=== PATIENT | female | born 1945 | race Caucasian/White ===

== ENCOUNTER 2018-03-20 12:18 | Inpatient (IN) | payer BC, OTHER ==
[2018-03-20] MEDS ORDERED: LABETALOL HCL 5 MG/ML 20 ML MDV ONE (12:30)
[2018-03-20] MEDS ORDERED: LABETALOL HCL 5 MG/ML 20 ML MDV IVP ONE ×3 (12:39→14:51)
[2018-03-20 12:58] LABS: PLATELET COUNT 309 10^3/uL (150-400)
[2018-03-20 13:06] LABS: INR 1.01 (0.83-1.16); PROTIME(PATIENT) 13.5 SEC (12.0-15.0)
[2018-03-20] MEDS ORDERED: IOPAMIDOL (ISOVUE 370) 100 ML BTL IV ONE (13:25)
--- NOTE | 2018-03-20 14:48 | EDPHY ---
H & P Time Seen by Provider: 03/20/18 12:22 HPI/ROS: HPI High blood pressure, left shoulder neck pain. 72-year-old female from the office of plate cutter Dr. Saji Steiner. This patient complains of a left-sided neck pain and shoulder pain, atraumatic, that has been bothering her for the last 2-3 days intermittently. She reports the pain radiates into her back. I received a call from Dr. Steiner who is concerned about an acute coronary syndrome versus a dissection process. She was extremely hypertensive with systolic blood pressures in the 230s and diastolic blood pressure in the 120s. She does not have any shortness of breath. She does have a history of hypertension and currently takes Benicar and Cardura. She has been on this medication for about 2 years now. ROS: Constitutional: No fever, no chills. No weakness. Eyes: No discharge. No changes in vision. ENT: No sore throat. No nasal congestion or rhinorrhea. Respiratory: No cough. No shortness of breath. Cardiac: No chest pain, no palpitations. Gastrointestinal: No abdominal pain, no vomiting, no diarrhea. Genitourinary: No hematuria. No dysuria or increased frequency with urination. Musculoskeletal: No back pain. As above. No myalgias or arthralgias. Skin: No rashes. Neurological: No headache. No focal weakness or altered sensation. Past medical history: Hypertension, depression, allergies, arthritis, osteopenia, irritable bowel syndrome. Social history: Nonsmoker. No alcohol. Here with family. She is from [place]. Physical Exam: General Appearance: Alert, no distress. This patient is responding to questions appropriately and in full sentences. This patient appears well- hydrated and well-nourished. Eyes: Pupils equal and round no pallor or injection. No lid edema, erythema or injection. Respiratory: There are no retractions, lungs are clear to auscultation with good air movement bilaterally. Cardiovascular: Regular rate and rhythm. No murmur appreciated. Gastrointestinal: Abdomen is soft and nontender, no masses, bowel sounds normal. No focal tenderness at McBurney's point. No Shah sign. Neurological: Motor sensory function is grossly intact. Cranial nerves are normal. Gait is normal. Skin: Warm and dry, no rashes. Musculoskeletal: Neck is supple and nontender. Extremities are symmetrical. All joints range without pain or impingement. Psychiatric: No agitation. No depression. Database: EKG: EKG time is 12:30 p.m.; EKG shows a narrow complex normal sinus rhythm with a ventricular rate of 59. The RI, QRS, QT intervals are within normal limits. There are no ST-T wave changes indicative of ischemic or injury pattern. No evidence of right heart strain. Interpreted by me. Imaging: Echocardiogram: Preliminary read normal ejection fraction, no dissection. CT angiogram of chest: No pulmonary embolism, no evidence of dissection, results were discussed with staff radiologist Dr. Glynn Curiel. Procedures: Emergency department course: Triage vital signs reviewed. Initial blood pressure 242/111, vital signs otherwise normal. Patient afebrile. IV established, patient placed on a technical lead, patient given 20 mg of IV labetalol. Blood pressure came down to 163/82 after this medication. Patient on presentation to the emergency department has denied any left shoulder, neck pain or chest pain. 2:50 p.m., patient re-evaluated, resting comfortably at this time. Denies any chest pain, neck pain or shoulder pain. Results of her emergency department workup discussed with her and family. Blood pressure currently 179/103. The patient will be given IV labetalol as needed for blood pressures greater than 190 systolic. I discussed admission for observation overnight and and establishment of a better management plan for her hypertension. She endorses. She will also be seen by her plate cutter Dr. Saji Steiner. 2:55 p.m., spoke with on-call hospitalist, , case discussed with her in detail. She accepts this patient for admission to telemetry observation. The patient's remaining emergency department course under my care has been uneventful. She was admitted in stable condition to telemetry observation. 3:10 p.m., spoke with plate cutter Dr. Saji Steiner. Patient's emergency department workup and course was discussed in detail with him. He will see this patient on admission to the floor. Differential Diagnosis: The differential diagnosis on this patient includes but is not limited to hypertensive emergency, acute coronary syndrome, aortic dissection. This represents a partial list of diagnoses considered. These considerations are based on history, physical exam, past history, reassessment and diagnostic testing. Smoking Status: Never smoked Constitutional: Initial Vital Signs Temperature (C) 36.9 C 03/20/18 12:27 Heart Rate 62 03/20/18 12:27 Respiratory Rate 16 03/20/18 12:27 Blood Pressure 242/111 H 03/20/18 12:27 O2 Sat (%) 99 03/20/18 12:27 O2 Delivery Mode Room Air Allergies/Adverse Reactions: codeine Allergy (Verified 03/20/18 12:24) gabapentin [From Neurontin] Allergy (Verified 03/20/18 12:24) gluten Allergy (Verified 03/20/18 12:24) lactose Allergy (Verified 03/20/18 12:24) prednisone Allergy (Verified 03/20/18 12:24) shellfish derived Allergy (Verified 03/20/18 12:24) tramadol [From Ultram] Allergy (Verified 03/20/18 12:24) Home Medications: Medication Instructions Recorded Albuterol [Proventil Inhaler HFA 1 - 2 puffs IH Q4H PRN 03/20/18 (*)] Aspirin EC [Aspirin EC 81 mg (*)] 81 mg PO DAILY 03/20/18 Azelastine HCl [Astepro] 2 sprays NS BID 03/20/18 Beclomethasone Qvar 80 [Qvar 80 2 inh IH BID 03/20/18 Redihaler (*)] Cetirizine [ZyrTEC 10 mg (*)] 10 mg PO DAILY PRN 03/20/18 Ciclesonide [OMNARIS] 1 spray EACHNARE DAILY PRN 03/20/18 DESVENLAFAXINE SUCCINATE [Pristiq] 50 mg PO DAILY 03/20/18 Doxazosin Mesylate [Cardura] 2 mg PO HS 03/20/18 Estradiol [VAGIFEM] 10 mcg VG TUFR 03/20/18 Fenofibrate,Micronized 200 mg PO DAILY 03/20/18 [Fenofibrate] Herbals/Supplements -Info Only 1 ea PO DAILY 03/20/18 Multivitamins [Multivitamin (*)] 1 each PO DAILY 03/20/18 Olmesartan Medoxomil [Benicar 20 20 mg PO HS 03/20/18 mg (*)] Sarver-3 Fatty Acids [Fish Oil 1000 1,000 mg PO HS 03/20/18 mg (*)] Polyethylene Glycol 3350 [Miralax 17 gm PO HS PRN 03/20/18 17 gm (*)] buPROPion [Wellbutrin 75mg (*)] 75 mg PO DAILY 03/20/18 traZODone [traZODONE 50MG (*)] 50 mg PO HS 03/20/18 Medical Decision Making - Data Points Laboratory Results: Laboratory Results 03/20/18 12:40 03/20/18 12:40 Medications Given: Acetaminophen (Tylenol) 650 mg PO Q4HRS PRN PRN Reason: Pain, Mild/Fever, Can Take PO Stop: 09/16/18 15:47 Last Admin: 03/21/18 05:45 Dose: 650 mg Aspirin Buffered (Aspirin Ec) 81 mg PO DAILY [facility] Stop: 09/17/18 08:59 Last Admin: 03/21/18 08:19 Dose: 81 mg Azelastine HCl (Astelin) 2 sprays EACHNARE BID [facility] Stop: 09/16/18 20:59 Last Admin: 03/20/18 21:54 Dose: Not Given Beclomethasone Dipropionate (Qvar Redihaler) 2 inh IH BID [facility] Stop: 09/16/18 20:59 Last Admin: 03/20/18 21:17 Dose: Not Given Bupropion HCl (Wellbutrin) 75 mg PO DAILY [facility] Stop: 09/17/18 08:59 Last Admin: 03/21/18 08:20 Dose: 75 mg Doxazosin Mesylate (Cardura) 2 mg PO HS [facility] Stop: 09/16/18 20:59 Last Admin: 03/20/18 20:08 Dose: 2 mg Fenofibrate (Tricor) 145 mg PO DAILY [facility] Stop: 09/17/18 08:59 Last Admin: 03/21/18 08:19 Dose: 145 mg Hydralazine HCl (Apresoline) 10 mg IVP Q6HRS PRN PRN Reason: SBP>170 Stop: 09/16/18 17:11 Last Admin: 03/20/18 17:45 Dose: 10 mg Multivitamins (Tab-A-James) 1 each PO DAILY [facility] Stop: 09/17/18 08:59 Last Admin: 03/21/18 08:20 Dose: 1 each [id number] Ethyl Esters (Fish Oil) 1,000 mg PO HS [facility] Stop: 09/16/18 20:59 Last Admin: 03/20/18 20:06 Dose: 1,000 mg Trazodone HCl (Trazodone) 50 mg PO HS [facility] Stop: 09/16/18 20:59 Last Admin: 03/20/18 21:38 Dose: 50 mg Discontinued Medications Labetalol HCl (Trandate Injection) 20 mg IVP EDNOW ONE Stop: 03/20/18 12:40 Last Admin: 03/20/18 12:43 Dose: 20 mg Labetalol HCl (Trandate Injection) 20 mg IVP EDNOW ONE Stop: 03/20/18 12:57 Last Admin: 03/20/18 13:17 Dose: Not Given Labetalol HCl (Trandate Injection) 10 mg IVP EDNOW ONE Stop: 03/20/18 14:52 Last Admin: 03/20/18 14:53 Dose: 10 mg Losartan Potassium (Cozaar) 25 mg PO DAILY [facility] Stop: 09/16/18 17:14 Last Admin: 03/21/18 08:20 Dose: 25 mg Point of Care Test Results: Chemistry 03/20/18 03/20/18 13:00 12:48 POC Sodium 142 mEq/L mEq/L (135-145) POC Potassium 3.4 mEq/L mEq/L (3.3-5.0) POC Chloride 109 mEq/L mEq/L (97-110) POC BUN 21 mg/dL mg/dL (7-23) POC Creatinine 0.7 mg/dL mg/dL (0.6-1.0) POC Glucose 85 mg/dL mg/dL (70-100) POC Troponin I 0.01 ng/mL ng/mL (0.00-0.08) ISTAT H&H 03/20/18 13:00 POC Hgb 12.2 gm/dL L gm/dL (12.6-16.3) POC Hct 36 % L % (38-47) Departure - Departure Disposition: [facility] Acute Clinical Impression: Uncontrolled hypertension, Left shoulder pain
--- NOTE | 2018-03-20 15:28 | CPEKG ---
Test Reason : OPEN Blood Pressure : / mmHG Vent. Rate : 059 BPM Atrial Rate : 059 BPM P-R Int : 156 ms QRS Dur : 090 ms QT Int : 478 ms P-R-T Axes : 052 045 023 degrees QTc Int : 474 ms Sinus rhythm Abnormal inferior Q waves Borderline ST depression, anterolateral leads Confirmed by Evonne Marcos ([id number]) on 03/20/2018 3:28:13 PM Referred By: Confirmed By:Evonne Marcos
[2018-03-20] MEDS ORDERED: PROMETHAZINE HCL 25 MG/ML INJ IVP PRN (15:48)
[2018-03-20] MEDS ORDERED: ONDANSETRON 4 MG/2 ML VIAL IVP PRN (15:48)
[2018-03-20] MEDS ORDERED: ONDANSETRON DISINTEGRATING 4 MG TAB PO PRN (15:48)
[2018-03-20] MEDS ORDERED: oxyCODONE IR 5 MG TAB PO PRN (15:48)
[2018-03-20] MEDS ORDERED: HYDROCODONE/APAP 5/325 TAB PO PRN (15:48)
--- NOTE | 2018-03-20 16:20 | ECHO ---
[email or web address] [address] [address] Main: [phone] Fax: Transthoracic Echocardiogram Name: ASUNCION COLEMAN MR#: [id number] Study Date: 03/20/2018 Study Time: 01:12 PM Date of : 1945 Age: 72 year(s) Height: 160 cm (63 in.) Weight: 48.99 kg (108 lb.) BSA: 1.49 m2 Gender: Female Examination: Echo Indication: R/O dissection/eval AI Image Quality: Contrast: Requested by: Evonne Suarze BP: 168 mmHg/111 mmHg Heart Rate: Rhythm: Indication: R/O dissection/eval AI Procedure Staff Finisher Denture: Preethi Hager RDCS Reading Physician: Saji Ledezma MD Requesting Provider: Measurements: Chambers Valvular Assessment AV/MV Valvular Assessment TV/PV Normal Normal Normal Name Value Range Name Value Range Name Value Range Ao Domonique (MM): 3.1 cm (2.2 cm-3.7 AV Vmax: 1.74 m/s (1 m/s-1.7 TR Vmax: 2.35 mm/s ( - ) cm) m/s) TR PGmax: 22 mmHg ( - ) IVSd (2D): 0.9 cm (0.6 cm-1.1 AV maxP mmHg ( - ) syst. PAP: 27 mmHg ( - ) cm) AV meanP mmHg ( - ) LVDd (2D): 4.6 cm (3.9 cm-5.3 AR (PHT): 537 ms ( - ) cm) MV E Vmax: 0.89 m/s ( - ) LVDs (2D): 2.8 cm (2.1 cm-4 MV A Vmax: 0.87 m/s ( - ) cm) MV E/A: 1.02 ( - ) LVPWd (2D): 0.7 cm ( - ) LVEF (MOD4): 70 % (>=55 %) EF Range: 65-70 % Continued Measurements: Chambers Valvular Assessment AV/MV Valvular Assessment TV/PV Name Value Name Value Name Value LADs: 3.8 cm MV E/E' Septal: 16.70 CVP (est.): 5 mmHg LADs Lon.6 cm MV E/E' Lateral: 16.70 LA Area: 20.2 cm2 AR Vmax: 4.93 cm/s Additional Vessels Name Value Ao Ascendin.0 cm Patient: ASUNCION COLEMAN Study Date: 03/20/2018 Page 1 of 2 01:12 PM Findings: Left Ventricle: Normal size left ventricle. Mild concentric LV hypertrophy. The ejection fraction is estimated to be 65-70 %. Normal diastolic LV function. Question base inferior hypo/akinesis. All remaining segments have normal motion.. Right Ventricle: Normal size right ventricle. Left Atrium: The left atrium is normal in size. Right Atrium: The right atrium is normal in size. Mitral Valve: Mild mitral annular calcification. Mild mitral valve regurgitation is present. Aortic Valve: Mild to moderate aortic valve regurgitation. Tricuspid Valve: The tricuspid valve is normal in appearance and function. Mild tricuspid regurgitation is present. The pulmonary artery pressure is normal. Pulmonic Valve: Pulmonary valve not well visualized. Aorta: Borderline dilated ascending aorta.. The aorta is normal. Pericardium: No pericardial effusion. There is pericardial fat. (No Signature Object) Patient: ASUNCION COLEMAN Study Date: 03/20/2018 Page 2 of 2 01:12 PM [id number]
[2018-03-20] MEDS ORDERED: CICLESONIDE EACHNARE PRN (16:34)
[2018-03-20] MEDS ORDERED: POLYETHYLENE GLYCOL 3350 17 GM PKT PO PRN (16:34)
[2018-03-20] MEDS ORDERED: CETIRIZINE 10 MG TAB PO PRN (16:34)
[2018-03-20] MEDS ORDERED: ALBUTEROL 60 PUFFS/8 GM MDI IH PRN (16:34)
[2018-03-20] MEDS: hydrALAZINE 20 MG/ML VIAL IVP PRN (17:45)
[2018-03-20] MEDS: LOSARTAN POTASSIUM 25 MG TAB PO SCH (17:45)
--- NOTE | 2018-03-20 17:55 | PDCARPN ---
Cardiology Progress Note Chief Complaint: Patient reports mild headache. Assessment/Plan: Assessment: Please see Dr. Steiner office note dated 03/20/2018, to be used as official cardiology consultation. I have placed a paper copy in patient's physical chart. 72-year-old female from [facility] visiting her brother here in [place]. Seen at our office today for complain of dizziness, near syncope, poorly controlled hypertension. Significant history of TIA, hypertension, depression, asthma, arthritis, hyperlipidemia, irritable bowel syndrome, and Graves disease in remission. Noted with significant elevated blood pressures in our office at 218/118 on the left and 226/116 on the l right. Patient reporting significant elevated blood pressures over the last few days, despite restarting her Benicar for last few weeks. Reporting in our office of complaint of left neck shoulder and upper scapular area discomfort. Denying having any chest pain, pressure, shortness of breath, or dyspnea on exertion. Direct admit to the ED. Normal electrolyte renal function. Negative troponin. Patient with significant cardiac risk factors that include age, hypertension, hyperlipidemia, and family history of CAD. Studies: 03/20/2018 CTA of chest negative for PE or aortic dissection. 03/20/2018 ECHO normal LV size with mild concentric LVH, EF 65-70% with normal diastolic function, questionable base inferior hypokinesis. Mild annular calcification, mild MR, [id number] AI, mild TR, normal pulmonary pressures. Mildly dilated ascending aorta at 4.0 cm. 03/20/2018, electrocardiogram: Sinus bradycardia, mild Q-waves in inferior leads , biphasic T-waves in V1 Plan: 1. Hypertension emergency: Mild improvement of BP with IV labetalol, unfortunately noted to be bradycardic with heart rates into the 50. Patient states she has not taken her Benicar today. Patient also request not being placed on Benicar, due to feeling that she has yo-yo"blood pressures. Will place her on losartan at 25 mg p.o. Q.day, 1st dose now. Will also order p.r.n. Hydralazine, 10 mg q.6 hours IV systolic blood pressure greater than 170. Will not attempt to drop blood pressure too quickly. Repeat basic metabolic panel in a.m.. 2. Left shoulder and scapula pain: Patient reporting going on for multiple days , CTA negative for PE, aortic dissection. Noted questionable wall motion abnormality on echocardiogram. Electrocardiogram showing no ST or T-wave abnormalities suggesting of acute ischemia. Concerning that this may be patient 's angina equivalent. Initial troponin negative. Will cycle troponins overnight. Will plan to make patient NPO after midnight. If noted elevation, then will plan for patient to undergo cardiac catheterization. If continue be negative, consider stress testing with imaging. Home aspirin dosage ordered. 3. Hyperlipidemia: Patient states history of hyperlipidemia, currently not on any statin therapy. Will get a fasting lipid panel in a.m.. 4. Palpitations: Patient reports history of palpitations, previous history of TIA, concerning of possible atrial arrhythmia. Continuous cardiac monitoring, re-evaluated in a.m., with consideration of LINQ loop recorder implantation. 03/20/18 17:53 Subjective: Patient denies of any chest pressure or pain. Reports no further left shoulder/ scapula/arm pain. Reports no shortness of breath. Reports no palpitations since hospital admission. Reviewed/Discussed With: other (Dr Steiner) Objective: Vital Signs (8 Hrs) Temp Pulse Resp BP Pulse Ox 03/20/18 16:00 193/103 H 03/20/18 15:49 36.8 C 54 L 16 215/110 H 95 Intake/Output (24 Hrs) 03/19/18 03/20/18 03/21/18 05:59 05:59 05:59 Intake Total 200 Balance 200 Intake: Oral (ml) 200 Other: Weight 48.534 kg Intake Quantity Yes Sufficient Number of Voids Toilet 1 Result Diagrams: 03/20/18 12:40 03/20/18 12:40 - Physical Exam Constitutional: WDWN, no apparent distress Ears, Nose, Mouth, Throat: moist mucous membranes Cardiovascular: regular rate and rhythm, no rubs, no gallops, systolic murmur (1 /6 LSB), pulses symmetric bilat, No jugular vein distention, No carotid bruit Peripheral Pulses: 1+: dorsalis-pedis (R), dorsalis-pedis (L), 2+: carotid (R), carotid (L) Respiratory: clear to auscultate bilat, no crackles, no wheezes Gastrointestinal: normoactive bowel sounds Skin: warm, no edema Neurologic: AAOx3 Psychiatric: cooperative, interactive, following commands ICD10 Worksheet Patient Problems: Problems Problem Status Onset Uncontrolled hypertension Acute Left shoulder pain Acute
[2018-03-20] MEDS ORDERED: niCARdipine/NACL 200 ML IV SCH (18:00)
--- NOTE | 2018-03-20 19:19 | PDGENHP ---
History and Physical - Chief Complaint elevated bp, neck pain - History of Present Illness 72 yo F with PMH of poorly controlled BP, asthma presenting from Dr. Steiner's office with concerns of significantly elevated BP as well as left shoulder and neck pain. Patient notes she has been having increased difficulties with her BP over the last several months. She was on norvasc which did not work, then transitioned to benicar which she also feels has not worked. She does note that she was started on 3.25mg of HCTZ and even on that very low dose she became quite hypotensive and felt as though she may pass out. She notes that for the last several days her BP has been quite elevated and she has had this associated neck and shoulder pain. That is not usual for her to have that kind of pain, massaging did not help and she did not feel as if anything helped it. She has not had chest pain, she has a slight headache currently but otherwise denies pain. She has not had n/v. She has no leg swelling, sob or palpitations. History Information - Allergies/Home Medication List Allergies/Adverse Reactions: codeine Allergy (Verified 03/20/18 12:24) gabapentin [From Neurontin] Allergy (Verified 03/20/18 12:24) gluten Allergy (Verified 03/20/18 12:24) lactose Allergy (Verified 03/20/18 12:24) prednisone Allergy (Verified 03/20/18 12:24) shellfish derived Allergy (Verified 03/20/18 12:24) tramadol [From Ultram] Allergy (Verified 03/20/18 12:24) Home Medications: Albuterol [Proventil Inhaler HFA (*)] 1 - 2 puffs IH Q4H PRN 03/20/18 [Last Taken 2 Weeks Ago ~03/06/18] Aspirin EC [Aspirin EC 81 mg (*)] 81 mg PO DAILY 03/20/18 [Last Taken 03/20/18] Beclomethasone Qvar 80 [Qvar 80 Redihaler (*)] 2 inh IH BID 03/20/18 [Last Taken 03/20/18 07:00] Cetirizine [ZyrTEC 10 mg (*)] 10 mg PO DAILY PRN 03/20/18 [Last Taken 03/20/18] Ciclesonide [OMNARIS] 1 spray EACHNARE DAILY PRN 03/20/18 [Last Taken 03/20/18] DESVENLAFAXINE SUCCINATE [Pristiq] 50 mg PO DAILY 03/20/18 [Last Taken 03/20/18 07:00] Doxazosin Mesylate [Cardura] 2 mg PO HS 03/20/18 [Last Taken 03/19/18] Estradiol [VAGIFEM] 10 mcg VG TUFR 03/20/18 [Last Taken 03/19/18] Fenofibrate,Micronized [Fenofibrate] 200 mg PO DAILY 03/20/18 [Last Taken ] Herbals/Supplements -Info Only 1 ea PO DAILY 03/20/18 [Last Taken 03/20/18] Multivitamins [Multivitamin (*)] 1 each PO DAILY 03/20/18 [Last Taken 03/20/18] Olmesartan Medoxomil [Benicar 20 mg (*)] 20 mg PO HS 03/20/18 [Last Taken ] [place]-3 Fatty Acids [Fish Oil 1000 mg (*)] 1,000 mg PO HS 03/20/18 [Last Taken 03/19/18] Polyethylene Glycol 3350 [Miralax 17 gm (*)] 17 gm PO HS PRN 03/20/18 [Last Taken 03/19/18] buPROPion [Wellbutrin 75mg (*)] 75 mg PO DAILY 03/20/18 [Last Taken 03/20/18 07: 00] traZODone [traZODONE 50MG (*)] 50 mg PO HS 03/20/18 [Last Taken 03/19/18] I have personally reviewed and updated: family history, medical history, social history, surgical history - Past Medical History asthma, hypertension, hyperlipidemia, psychiatric history (depression), TIA Additional medical history: Graves disease. osteoporosis - Surgical History Reports: cholecystectomy, hysterectomy, spinal surgery Additional surgical history: fundoplication. shoulder surgery. cataract surgery. retinal surgery. bunion. left knee. right total hip - Family History Positive for: CAD (brother with cabg) - Social History Smoking Status: Never smoked Alcohol Use: None Drug Use: None Additional social history: , lives in [place] here visiting brother, 3 children, 7 grandchildren Review of Systems Review of Systems: ROS: 10pt was reviewed & negative except for what was stated in HPI & below Physical Exam Physical Exam: Temp Pulse Resp BP Pulse Ox 36.8 C 65 20 147/77 H 96 03/20/18 15:49 03/20/18 18:21 03/20/18 18:21 03/20/18 18:21 03/20/18 18:21 Constitutional: no apparent distress, appears nourished Eyes: PERRL Ears, Nose, Mouth, Throat: moist mucous membranes, hearing normal Cardiovascular: regular rate and rhythym, no murmur, rub, or gallop, No edema Respiratory: no respiratory distress, no rales or rhonchi, clear to auscultation Gastrointestinal: normoactive bowel sounds, soft, non-tender abdomen Genitourinary: no bladder tenderness Skin: warm, normal color Musculoskeletal: other (right posterior upper thigh with mobile, soft well circumsribed 4cm mass) Neurologic: AAOx3 Psychiatric: interacting appropriately, not anxious, not encephalopathic Lab Data & Imaging Review 03/20/18 12:40 03/20/18 12:40 WBC 6.90 10^3/uL (3.80-9.50) 03/20/18 12:40 RBC 4.06 10^6/uL (4.18-5.33) L 03/20/18 12:40 Hgb 11.5 g/dL (12.6-16.3) L 03/20/18 12:40 POC Hgb 12.2 gm/dL (12.6-16.3) L 03/20/18 13:00 Hct 35.3 % (38.0-47.0) L 03/20/18 12:40 POC Hct 36 % (38-47) L 03/20/18 13:00 MCV 86.9 fL (81.5-99.8) 03/20/18 12:40 MCH 28.3 pg (27.9-34.1) 03/20/18 12:40 MCHC 32.6 g/dL (32.4-36.7) 03/20/18 12:40 RDW 15.9 % (11.5-15.2) H 03/20/18 12:40 Plt Count 309 10^3/uL (150-400) 03/20/18 12:40 MPV 11.1 fL (8.7-11.7) 03/20/18 12:40 Neut % (Auto) 60.7 % (39.3-74.2) 03/20/18 12:40 Lymph % (Auto) 24.8 % (15.0-45.0) 03/20/18 12:40 [place] % (Auto) 12.8 % (4.5-13.0) 03/20/18 12:40 Eos % (Auto) 1.0 % (0.6-7.6) 03/20/18 12:40 Baso % (Auto) 0.4 % (0.3-1.7) 03/20/18 12:40 Nucleat RBC Rel Count 0.0 % (0.0-0.2) 03/20/18 12:40 Absolute Neuts (auto) 4.19 10^3/uL (1.70-6.50) 03/20/18 12:40 Absolute Lymphs (auto) 1.71 10^3/uL (1.00-3.00) 03/20/18 12:40 Absolute Monos (auto) 0.88 10^3/uL (0.30-0.80) H 03/20/18 12:40 Absolute Eos (auto) 0.07 10^3/uL (0.03-0.40) 03/20/18 12:40 Absolute Basos (auto) 0.03 10^3/uL (0.02-0.10) 03/20/18 12:40 Absolute Nucleated RBC 0.00 10^3/uL (0-0.01) 03/20/18 12:40 Immature Gran % 0.3 % (0.0-1.1) 03/20/18 12:40 Immature Gran # 0.02 10^3/uL (0.00-0.10) 03/20/18 12:40 PT 13.5 SEC (12.0-15.0) 03/20/18 12:40 INR 1.01 (0.83-1.16) 03/20/18 12:40 APTT 29.2 SEC (23.0-38.0) 03/20/18 12:40 POC Sodium 142 mEq/L (135-145) 03/20/18 13:00 Sodium 141 mEq/L (135-145) 03/20/18 12:40 POC Potassium 3.4 mEq/L (3.3-5.0) 03/20/18 13:00 Potassium 3.8 mEq/L (3.3-5.0) 03/20/18 12:40 POC Chloride 109 mEq/L (97-110) 03/20/18 13:00 Chloride 108 mEq/L (97-110) 03/20/18 12:40 Carbon Dioxide 23 mEq/l (22-31) 03/20/18 12:40 Anion Gap 10 mEq/L (8-16) 03/20/18 12:40 POC BUN 21 mg/dL (7-23) 03/20/18 13:00 BUN 22 mg/dL (7-23) 03/20/18 12:40 Creatinine 0.7 mg/dL (0.6-1.0) 03/20/18 12:40 POC Creatinine 0.7 mg/dL (0.6-1.0) 03/20/18 13:00 Estimated GFR > 60 03/20/18 12:40 Glucose 85 mg/dL (70-100) 03/20/18 12:40 POC Glucose 85 mg/dL (70-100) 03/20/18 13:00 Calcium 10.5 mg/dL (8.5-10.4) H 03/20/18 12:40 Total Bilirubin 0.5 mg/dL (0.1-1.4) 03/20/18 12:40 Conjugated Bilirubin 0.4 mg/dL (0.0-0.5) 03/20/18 12:40 Unconjugated Bilirubin 0.1 mg/dL (0.0-1.1) 03/20/18 12:40 AST 46 IU/L (14-46) 03/20/18 12:40 ALT 36 IU/L (9-52) 03/20/18 12:40 Alkaline Phosphatase 72 IU/L (38-126) 03/20/18 12:40 POC Troponin I 0.01 ng/mL (0.00-0.08) 03/20/18 12:48 Total Protein 6.7 g/dL (6.3-8.2) 03/20/18 12:40 Albumin 4.0 g/dL (3.5-5.0) 03/20/18 12:40 TSH 0.947 uIU/mL (0.465-4.680) 03/20/18 12:40 Free T4 1.30 ng/dL (0.59-2.19) 03/20/18 12:40 Total T3 1.300 ng/mL (0.970-1.690) 03/20/18 12:40 Visualized and Interpreted imaging results: Yes Interpretation: CTA: no PE, 1.8 cm thyroid nodule, tiny likely insignificant pulm nodules Visualized and Interpreted EKG results: Yes EKG Interpretation: Positive for: normal sinsus rhythm Assessment & Plan Assessment: Uncontrolled hypertension (Acute) Left shoulder pain (Acute) 72 yo F with PMH of HTN, asthma and Graves admitted with neck/shoulder pain and hypertensive urgency # hypertensive urgency: this has likely been going on for some time, given labetalol in ER with improvement however given concurrent bradycardia use is limited. Has now received losartan and hydralazine and BP has come down to sbp in 140s, will monitor and provide only prn hydralazine as needed to keep BP around 170 systolic overnight. Appreciate cardiology input. Echo relatively unremarkable, will check thyroid function tests. # neck/shoulder pain: with chest CTA and echo ruling out dissection and PE but still concerning for possible anginal equivalent, monitoring on tele, trending trops, will likely go for angio in am # thigh mass: per patient this has appeared over the last 2 weeks and is currently relatively large, does have benign features on exam however given rapid growth this likely should be removed. Discussed with family option of having surgery evaluate while she is here although they do plan to return home shortly, if hospitalization is prolonged would consider IP surgery consultation # graves/thyroid nodule: patient states she is aware of the thyroid nodules and has had biopsy revealing that they are benign, will get TFTs as above # asthma: without e/o acute exacerbation, continue op meds # IP status, will require > 48 hours stay for eval/mgmt of above Patient new to my care. Care plan reviewed with ER doctor including plans for cardiology consult. Further hx obtained from patients family present at bedside.
[2018-03-20] MEDS: OMEGA-3 FATTY ACIDS 1,000 MG CAP PO SCH (20:06)
[2018-03-20] MEDS: ACETAMINOPHEN 325 MG TAB PO PRN (20:07)
[2018-03-20] MEDS: DOXAZOSIN MESYLATE 4 MG TAB PO SCH (20:08)
[2018-03-20] MEDS: BECLOMETHASONE QVAR 80 REDIHALER 120 INH/10.6 GM MDI IH SCH (21:17)
[2018-03-20] MEDS: traZODone 50 MG TAB PO SCH (21:38)
[2018-03-20] MEDS: AZELASTINE NASAL MDI EACHNARE SCH (21:54)
[2018-03-21 04:32] LABS: PLATELET COUNT 258 10^3/uL (150-400)
[2018-03-21] MEDS: ACETAMINOPHEN 325 MG TAB PO PRN ×2 (05:45→13:26)
[2018-03-21] MEDS: FENOFIBRATE 145 MG TAB PO SCH (08:19)
[2018-03-21] MEDS: ASPIRIN EC 81 MG TAB PO SCH (08:19)
[2018-03-21] MEDS: buPROPion 75 MG TAB PO SCH (08:20)
[2018-03-21] MEDS: MULTIVITAMINS 1 EACH TAB PO SCH (08:20)
[2018-03-21] MEDS: LOSARTAN POTASSIUM 25 MG TAB PO SCH ×2 (08:20→20:44)
--- NOTE | 2018-03-21 10:25 | PDMN ---
Medical Necessity Medical necessity: Pt meets inpt criteria per MD order and MCG M-197, Hypertension. Est LOS>2MN for management of hypertensive emergency, pt w/BP's > 200/100 upon admission (159/82 this AM), bradycardia w/HR into the 50's, and w/ neck and shoulder pain- possible angina, cardiology consult, possible angiogram this AM, trending troponins, IV labetolol abd hyrdralazine for BP, pain management. Pt also presents w/new, relatively large thigh mass.
[2018-03-21] MEDS ORDERED: REGADENOSON 0.4 MG/5 ML SYR IVP ONE (10:30)
--- NOTE | 2018-03-21 11:35 | CPR ---
[f rep st] NONINVASIVE CARDIAC PROCEDURE REPORT PROCEDURE: Stress test, MPI study. SUPERVISING ADMISSIONS RECRUITER: Dr. Swan. INDICATION FOR PROCEDURE: Left arm and shoulder pain, shortness of breath, abnormal electrocardiogra m. PRE: After obtaining informed consent, ensuring patient's n.p.o. status. For greater than 12 hours, patient was placed on electrocardiogram, initial EKG showing sinus rhythm, normal axis, nonspecific T-wave abnormalities in inferolateral leads. Initial blood pressure was 150/70, saturation 94% on ro om air. The patient reports no chest pain, shortness of breath, left shoulder pain or symptoms sugge sting of ischemia. STRESS: The patient was placed on exercise treadmill, following standard Timothy protocol. Patient ex ercised for approximately 5 minutes and 30 seconds, it was noted that she had some mild ST depression in inferolateral leads, but only made a base rate around 110 beats per minute, patient reporting sig nificant shortness of breath and feeling as if an asthma attack was coming on, and testing was stoppe d. Lungs were listened to, with no wheezing, the patient was given a dose of her inhaler of albutero l, and within 3-5 minutes symptoms subsided. No arrhythmias were noted through testing, and at peak exercise, blood pressure was 156/84. Unfortunately, due to her shortness of breath, and not getting her heart rate up to 85% of maximum predicted heart rate, testing is considered inconclusive and was transitioned over to Lexiscan MPI study. The patient was given Lexiscan injection slow IV push followed by nuclear isotope. Within 1 minute s he did report some mild abdominal cramping, but no chest pain or pressure. Her blood pressure and he art rate remained stable. Within 3 minutes, she was given a caffeinated beverage for her symptoms. Blood pressure at that time was 156/84. Sats remained stable. Within 5 minutes symptoms have subsid ed, final blood pressure of 148/70, heart rate 78, no arrhythmias, saturation greater than 97%, with no significant ST shifting with injection. Currently, she is asymptomatic of symptoms suggesting of ischemia. Vital signs are stable. She will be taken down to Nuclear Medicine for post-stress handy lopes /[id number]/MODL
--- NOTE | 2018-03-21 11:46 | HOSPPROG ---
Hospitalist Progress Note Assessment/Plan: 72 yo F with PMH of HTN, asthma and Graves admitted with neck/shoulder pain and hypertensive urgency # hypertensive urgency: patient reports issues with lability in her BP in the past, was initially quite improved but again trending up, now on losartan and hctz with prn hydralazine and over all improved. Will monitor again overnight. # neck/shoulder pain: with chest CTA and echo ruling out dissection and PE but still concerning for possible anginal equivalent, s/p lexiscan without e/o ischemia # thigh mass: per patient this has appeared over the last 2 weeks and is currently relatively large, does have benign features on exam however given rapid growth this likely should be removed. Requested surgery evaluation though reviewed with patient and family that this is not urgent and may not be able to be removed while in house. # graves/thyroid nodule: patient states she is aware of the thyroid nodules and has had biopsy revealing that they are benign, thyroid function tests wnl # asthma: without e/o acute exacerbation, continue op meds # IP status, will require > 48 hours stay for eval/mgmt of above Care plan reviewed with cardiology and gen surg, reviewed with patients present at bedside Subjective: no significant overnight events, patient feeling ok but does request having someone evaluate her thigh from surgery Objective: Vital Signs Temp Pulse Resp BP Pulse Ox 36.9 C 71 19 159/82 H 96 03/21/18 07:24 03/21/18 07:24 03/21/18 07:24 03/21/18 07:24 03/21/18 07:24 Laboratory Results 03/21/18 03:58 03/21/18 03:58 03/20/18 03/21/18 03/22/18 05:59 05:59 05:59 Intake Total 200 Output Total 900 Balance -700 PT 13.5 SEC (12.0-15.0) 03/20/18 12:40 INR 1.01 (0.83-1.16) 03/20/18 12:40 Constitutional: no apparent distress, appears nourished Eyes: PERRL Ears, Nose, Mouth, Throat: moist mucous membranes, hearing normal Cardiovascular: regular rate and rhythym, no murmur, rub, or gallop, No edema Respiratory: no respiratory distress, no rales or rhonchi, clear to auscultation Gastrointestinal: normoactive bowel sounds, soft, non-tender abdomen Genitourinary: no bladder tenderness Skin: warm, normal color Musculoskeletal: other (right posterior upper thigh with mobile, soft well circumsribed 4cm mass) Neurologic: AAOx3 Psychiatric: interacting appropriately, not anxious, not encephalopathic - Time Spent With Patient Time Spent with Patient: greater than 35 minutes Time Spent with Patient: Greater than 35 minutes spent on this patients care, greater than 50% of time spent counseling, educating, and coordinating care regarding the above mentioned plan. ICD10 Worksheet Patient Problems: Problems Problem Status Onset Left shoulder pain Acute Uncontrolled hypertension Acute
[2018-03-21] MEDS: BECLOMETHASONE QVAR 80 REDIHALER 120 INH/10.6 GM MDI IH SCH ×2 (11:52→20:47)
[2018-03-21] MEDS: AZELASTINE NASAL MDI EACHNARE SCH ×2 (12:04→20:46)
[2018-03-21] MEDS: Desvenlafaxine Succinate [Pristiq] 50 MG PO SCH (12:04)
[2018-03-21] MEDS: hydrALAZINE 20 MG/ML VIAL IVP PRN (12:27)
--- NOTE | 2018-03-21 13:38 | PDCARPN ---
Cardiology Progress Note Chief Complaint: Patient reports fatigue Assessment/Plan: Assessment: 72 y/o female from [facility] visiting her [place]. Significant past history that includes TIA, hypertension, depression, asthma, hyperlipidemia , irritable bowel syndrome, in Graves disease (in remission), admitted 2017 for complaints dizziness, lightheadedness, poorly controlled hypertension, and left shoulder and arm pain. Initial blood pressure in ER was 242/111. Reports somewhat noncompliance with home blood pressure medication Benicar. When on full dose at 20 mg p.o. Q.day, reporting episodes of lightheadedness with positional changes. Admitted to PCU for overnight observation. Started on losartan, and p.r.n. IV hydralazine. Studies: 03/20/2018 CTA of chest negative for PE or aortic dissection. 03/20/2018 ECHO normal LV size with mild concentric LVH, EF 65-70% with normal diastolic function, questionable base inferior hypokinesis. Mild annular calcification, mild MR, [id number] AI, mild TR, normal pulmonary pressures. Mildly dilated ascending aorta at 4.0 cm. 03/20/2018, electrocardiogram: Sinus bradycardia, mild Q-waves in inferior leads , biphasic T-waves in V1 03/21/2018 MPI: Negative for ischemia or infarction. 03/21/2018: Patient with significant improvement overnight with blood pressure with losartan, only requiring 1 dose of p.r.n. Hydralazine last evening. Unfortunately, at noon today, blood pressure did elevate to greater than 180 systolic, repeated IV hydralazine dose given. No neurological changes. Reports no further symptoms of left neck/back/shoulder pain. Negative troponins x3. Did undergo Francheska MPI study, which showed no signs of ischemia or infarction. Fasting lipid panel showing total cholesterol 129, triglycerides 85 , LDL 63, HDL 49. Electrocardiogram today showed sinus rhythm, no significant ST or T-wave abnormalities. Patient reporting no palpitations overnight, she has maintained sinus rhythm, with no malignant arrhythmias or pauses per continuous cardiac monitoring. CTA of chest negative for PE and aortic dissection. Echocardiogram did note mild concentric LVH, EF of 65-70% with questionable inferior hypokinesis. Mildly dilated ascending aorta at 4.0 cm. MPI negative for ischemia or infarction. Plan: 1. Hypertension emergency: Improvement with blood pressure control on losartan , unfortunately, requiring 1 dose of hydralazine at noon today. Increase losartan dosage to 25 mg p.o. Twice daily. Will also add low-dose hydrochlorothiazide at 12.5 mg p.o. Q.day. Will continue to plan on monitoring overnight, if BP stabilizes with no further use of hydralazine, consideration of discharge tomorrow. 2. Left shoulder and scapula pain: Patient reporting no further episodes of pain since hospital admission. CTA negative for dissection or pulmonary embolism. MPI negative for signs of ischemia or infarction. Negative troponins x3. 3. Hyperlipidemia: Well controlled on current dosage tricor, no changes at this time. 4. Palpitations: Patient reports no palpitations since hospitalization. Continuous cardiac monitoring showing no arrhythmias or pauses. Patient with past history of TIA. Consideration of 30 day monitor placement once discharged. 5. Dilated ascending aorta: 4.0 cm on echo yesterday, consideration of repeating study in 6 months time, to assure no further dilation. Patient with known history of asthma, will hold off on beta-blockers at this time. Blood pressure management as above. 6. Asthma: Patient did report significant shortness of breath with exercise on treadmill today, lungs were clear, symptoms instantly improved with use of inhaler. 7. Valvular heart disease: Noted to have mild MR, [id number] AI, mild TR off of echo. No signs of heart failure. Recommend patient have repeated echocardiogram in 1-2 years for re-evaluation. 03/21/18 13:50 Subjective: She denies of any chest pressure, pain, shoulder pain, or symptoms suggesting of ischemia. Reports no significant shortness of breath. Denies of any palpitations, lightheadedness, near-syncope, or syncopal events. Reports no symptoms suggestive TIA or CVA. Reviewed/Discussed With: hospitalist (Dr Torres), other (Dr Steiner and Dr Ledezma) Objective: Vital Signs (8 Hrs) Temp Pulse Resp BP Pulse Ox 03/21/18 12:00 36.8 C 64 16 189/96 H 96 03/21/18 07:24 36.9 C 71 19 159/82 H 96 Intake/Output (24 Hrs) 03/20/18 03/21/18 03/22/18 05:59 05:59 05:59 Intake Total 200 Output Total 900 Balance -700 Intake: Oral (ml) 200 Output: Urine (ml) 900 Toilet 900 Other: Weight 48.353 kg Number of Voids Toilet 1 1 Number of Stools Toilet 1 Result Diagrams: 03/21/18 03:58 03/21/18 03:58 Cardiac Labs: Cardiac Lab Results (72 Hrs) 03/21/18 00:05 Troponin I < 0.012 - Physical Exam Constitutional: WDWN, no apparent distress Ears, Nose, Mouth, Throat: moist mucous membranes Cardiovascular: regular rate and rhythm, systolic murmur (1/6 systolic murmur along left sternal border), pulses symmetric bilat, No jugular vein distention, No carotid bruit Peripheral Pulses: 2+: carotid (R), carotid (L), dorsalis-pedis (R), dorsalis- pedis (L) Respiratory: clear to auscultate bilat, no crackles, no wheezes Gastrointestinal: normoactive bowel sounds Skin: warm, no edema Neurologic: AAOx3 Psychiatric: cooperative, interactive, following commands ICD10 Worksheet Patient Problems: Problems Problem Status Onset Left shoulder pain Acute Uncontrolled hypertension Acute
--- NOTE | 2018-03-21 14:16 | ASMTCASEMG ---
Living Arrangements What is your living Answers: With Spouse arrangement? Who do you live with? Type Of Residence What kind of residence do Answers: House you live in? Discharge Plan Comments Coordination Status Comments Notes: Pts case discussed w/ Dr. Torres. Pt is a 72 y/o female admitted for hypertensive emergency and left shoulder pain. Pt went to the [facility] today. Pt will most likely d/c independent when medically stable. No therapies ordered at this time. CM available for changes. Plan: Independent Date Signed: 03/21/2018 02:16 PM Electronically Signed By:GINA Kuhn
[2018-03-21] MEDS: HYDROCHLOROTHIAZIDE 25 MG TAB PO SCH (15:13)
[2018-03-21] MEDS ORDERED: IBUPROFEN 200 MG TAB PO PRN (16:51)
[2018-03-21] MEDS: DOXAZOSIN MESYLATE 4 MG TAB PO SCH (20:43)
[2018-03-21] MEDS: OMEGA-3 FATTY ACIDS 1,000 MG CAP PO SCH (20:44)
[2018-03-21] MEDS: traZODone 50 MG TAB PO SCH (20:44)
--- NOTE | 2018-03-21 21:06 | SOAPPROG ---
SIL[facility] Progress Note Assessment/Plan: Assessment: 72-year-old female here for evaluation of hypertension. I was consulted for a mass on her right trochanteric area She has a history of a total hip replacement as well as a bursectomy and that area. She notes the mass it is a rare risen there over the last 3 weeks. It is not tender or inflamed or changing in size at this point. He has good range of motion of her hip is well-healed right greater trochanteric scar. An she has a 7 cm soft spongy mass adjacent to the old scar Impression is probable chronic seroma Plan: Ultrasound to confirm that diagnosis versus possible lipoma/risks and options were fully discussed including surgery for lipoma versus observation for the seroma 03/21/18 21:04 Objective: Vital Signs Temp Pulse Resp BP Pulse Ox 36.9 C 68 16 169/93 H 95 03/21/18 19:40 03/21/18 19:40 03/21/18 19:40 03/21/18 19:58 03/21/18 19:40 Laboratory Results 03/21/18 03:58 03/21/18 03:58 03/20/18 03/21/18 03/22/18 05:59 05:59 05:59 Intake Total 200 940 Output Total 900 Balance -700 940 PT 13.5 SEC (12.0-15.0) 03/20/18 12:40 INR 1.01 (0.83-1.16) 03/20/18 12:40 ICD10 Worksheet Patient Problems: Problems Problem Status Onset Left shoulder pain Acute Uncontrolled hypertension Acute
[2018-03-22] MEDS: FENOFIBRATE 145 MG TAB PO SCH (08:43)
[2018-03-22] MEDS: MULTIVITAMINS 1 EACH TAB PO SCH (08:43)
[2018-03-22] MEDS: HYDROCHLOROTHIAZIDE 25 MG TAB PO SCH (08:43)
[2018-03-22] MEDS: ASPIRIN EC 81 MG TAB PO SCH (08:44)
[2018-03-22] MEDS: LOSARTAN POTASSIUM 25 MG TAB PO SCH (08:44)
[2018-03-22] MEDS: AZELASTINE NASAL MDI EACHNARE SCH (08:44)
[2018-03-22] MEDS: buPROPion 75 MG TAB PO SCH (08:44)
[2018-03-22] MEDS: BECLOMETHASONE QVAR 80 REDIHALER 120 INH/10.6 GM MDI IH SCH (08:47)
[2018-03-22] MEDS: Desvenlafaxine Succinate [Pristiq] 50 MG PO SCH (08:47)
[2018-03-22] MEDS ORDERED: Estradiol [Vagifem] 10 MCG VG SCH (09:00)
--- NOTE | 2018-03-22 15:01 | PDCARPN ---
Cardiology Progress Note Chief Complaint: Patient reports no complaints at this time. Assessment/Plan: Assessment: 72 y/o female from [facility] visiting her [place]. Significant past history that includes TIA, hypertension, depression, asthma, hyperlipidemia , irritable bowel syndrome, in Graves disease (in remission), admitted 2017 for complaints dizziness, lightheadedness, poorly controlled hypertension, and left shoulder and arm pain. Initial blood pressure in ER was 242/111. Reports somewhat noncompliance with home blood pressure medication Benicar. When on full dose at 20 mg p.o. Q.day, reporting episodes of lightheadedness with positional changes. Admitted to PCU, with new med management for hypertension. Studies: 03/20/2018 CTA of chest negative for PE or aortic dissection. 03/20/2018 ECHO normal LV size with mild concentric LVH, EF 65-70% with normal diastolic function, questionable base inferior hypokinesis. Mild annular calcification, mild MR, asho-du-mfmqrvck AI, mild TR, normal pulmonary pressures. Mildly dilated ascending aorta at 4.0 cm. 03/20/2018, electrocardiogram: Sinus bradycardia, mild Q-waves in inferior leads , biphasic T-waves in V1 03/21/2018 MPI: Negative for ischemia or infarction. 03/22/2018: Patient with fairly well controlled BP throughout the evening, goal of keeping systolic in the 160s, unfortunately higher pressures this morning. Patient has been started on 2.5 mg of Norvasc this morning with improved BP control. She denies of any chest pressure, pain, or symptoms suggesting of ischemia. Cardiac monitoring showing sinus rhythm no significant pauses or malignant arrhythmias. Laboratory studies drawn of this a.m. Showing potassium 4.0, BUN 22, creatinine 0.7, mildly elevated calcium at 10.5. Plan: 1. Hypertension emergency: Improvement in blood pressure control since admission. Will plan on her continue on current dose of losartan 25 mg p.o. Twice daily, hydrochlorothiazide. Today have started her on Norvasc for a total of 5 mg p.o. Q.day, improvement in blood pressure control. Have discussed with patient, ideal control with the next week or 2, would be to keep systolic between 140 and 160, with ideal of titration of medication over the next few weeks to eventually get blood pressure with ideal of systolic 130 or less, diastolic less than 85. We discussed the importance of low-sodium intake, we have also discussed the importance of avoiding NSAIDs. Patient has stated that in the past Norvasc has caused edema in her ankles, hopefully with the addition of hydrochlorothiazide, she will not see this side effect. Will plan for patient with early follow-up in office, Sunday of next week with Dr. Steiner. 2. Left shoulder and scapula pain: Patient reporting no further episodes of pain since hospital admission. CTA negative for dissection or pulmonary embolism. MPI negative for signs of ischemia or infarction. Negative troponins x3. 3. Hyperlipidemia: Well controlled on current dosage tricor, no changes at this time. 4. Palpitations: Patient reports no palpitations since hospitalization. Continuous cardiac monitoring showing no arrhythmias or pauses. Patient with past history of TIA. Consideration of 30 day monitor placement once discharged. 5. Dilated ascending aorta: 4.0 cm on echo yesterday, consideration of repeating study in 6 months time, to assure no further dilation. Patient with known history of asthma, will hold off on beta-blockers at this time. Blood pressure management as above. 6. Asthma: Patient reports no complaints today. Continue using home medications. 7. Valvular heart disease: Noted to have mild MR, fisj-eb-qapjavtu AI, mild TR off of echo. No signs of heart failure. Recommend patient have repeated echocardiogram in 1-2 years for re-evaluation. 8. Mass on right trochanteri area: She has been evaluated by Dr. Castaneda of surgery. Underwent ultrasound of the hip which suggested chronic hematoma or Rendon-Tati lesion. Defer to surgery for treatment. 03/22/18 14:56 Subjective: She denies of any chest pain, pressure, or symptoms suggesting of ischemia. Reports no palpitations, lightheadedness, near-syncope or syncopal events. Reports no symptoms suggestive of TIA or CVA. Reviewed/Discussed With: family (Patient ), hospitalist (Dr Aj), other (Dr Ledezma and Dr Steiner) Objective: Vital Signs (8 Hrs) Temp Pulse Resp BP Pulse Ox 03/22/18 14:12 164/69 H 03/22/18 12:56 77 167/93 H 03/22/18 11:51 36.9 C 68 97 H 177/96 H 98 03/22/18 11:30 182/98 H 03/22/18 07:39 36.6 C 67 17 165/74 H 97 Intake/Output (24 Hrs) 03/21/18 03/22/18 03/23/18 05:59 05:59 05:59 Intake Total 200 1040 Output Total 900 Balance -700 1040 Intake: Oral (ml) 200 1040 Output: Urine (ml) 900 Toilet 900 Other: Weight 48.353 kg 47.6 kg Number of Voids Toilet 1 2 Number of Stools Toilet 1 Result Diagrams: 03/21/18 03:58 03/22/18 11:35 Cardiac Labs: Cardiac Lab Results (72 Hrs) 03/21/18 00:05 Troponin I < 0.012 - Physical Exam Constitutional: WDWN, no apparent distress Ears, Nose, Mouth, Throat: moist mucous membranes Cardiovascular: regular rate and rhythm, no rubs, no gallops, systolic murmur (1 -2/6 systolic murmur along left sternal border), jugular vein distention, pulses symmetric bilat, No carotid bruit Peripheral Pulses: 2+: carotid (R), carotid (L), dorsalis-pedis (R), dorsalis- pedis (L) Respiratory: clear to auscultate bilat, no crackles Gastrointestinal: normoactive bowel sounds Skin: no edema Neurologic: AAOx3 Psychiatric: cooperative, interactive, following commands ICD10 Worksheet Patient Problems: Problems Problem Status Onset Left shoulder pain Acute Uncontrolled hypertension Acute
--- NOTE | 2018-03-22 15:46 | CPEKG ---
Test Reason : OPEN Blood Pressure : / mmHG Vent. Rate : 059 BPM Atrial Rate : 059 BPM P-R Int : 168 ms QRS Dur : 083 ms QT Int : 492 ms P-R-T Axes : 050 043 048 degrees QTc Int : 488 ms Sinus rhythm Probable left atrial enlargement Borderline prolonged QT interval QT prolongation is new Confirmed by Alex Swan ([id number]) on 03/22/2018 3:46:41 PM Referred By: Confirmed By:Alex Swan
[2018-03-22 16:03] VITALS: BP 176/96
--- NOTE | 2018-03-22 16:28 | ASDISCHSUM ---
Discharge Information Plan Status:Home with No Needs Medically Cleared to Leave:03/22/2018 Discharge Date:03/22/2018 CM D/C Disposition:Home, Routine, Self-Care ADT D/C Disposition:Home, Routine, Self-Care Projected Discharge Date:03/22/2018 Transportation at D/C: Discharge Delay Reason: Follow-Up Date:03/22/2018 Discharge Slot: Final Diagnosis: Placement Information Patient Contact Information Contact Name:QUINTON Relationship: Address:[address] Work Phone: City:[place] Alternate Phone: State/Zip Code:[place] [address] Email: Financial Information Financial Class:Medicare Advantage Plans Primary Plan Desc:[employer] MEDICARE ADV Primary Plan Number:[id number] Secondary Plan Desc: Secondary Plan Number: Assessment Information LACE LACE Length of stay for Answers: 1 day current admission Acuity / Level of Answers: Yes Care: Did the patient have an inpatient admission? Comorbidities - select Answers: Cerebrovascular disease all that apply (CVA, TIA, aneurysms, vasc ular dementia) Opioid dependence / Chronic pain Other Notes: HTN; HLD # of Emergency department Answers: 1-2 visits in the last 6 months Social determinants Answers: Mental health diagnosis (anxiety, depression, pers onality disorders, etc.) Score: 14 Date Signed: 03/22/2018 04:26 PM Electronically Signed By:Odilia Garcia RN [facility] Initial CM Assessment Living Arrangements What is your living Answers: With Spouse arrangement? Who do you live with? Type Of Residence What kind of residence do Answers: House you live in? Discharge Plan Comments Coordination Status Comments Notes: Pts case discussed w/ Dr. Torres. Pt is a 72 y/o female admitted for hypertensive emergency and left shoulder pain. 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 Pt will most likely d/c independent when medically stable. No therapies ordered at this time. CM available for changes. Plan: Independent Date Signed: 03/21/2018 02:16 PM Electronically Signed By:GINA Kuhn Case Management Discharge Plan Note Case Management Discharge Discharge Order Complete? Answers: Yes Patient to Obtain Answers: Independently Medications Transportation Arranged Answers: Family/Friends Discharge Comments Notes: 03/22/2018 Case Management Note Pt to discharge independent with follow up as directed. Date Signed: 03/22/2018 04:27 PM Electronically Signed By:Odilia Garcia RN Intervention Information
--- NOTE | 2018-03-22 16:53 | GDS ---
ALL DIAGNOSES: 1. Hypertensive urgency. 2. Neck and shoulder pain. 3. Thigh mass. 4. Graves/thyroid nodule. 5. Asthma. 6. Suspected chronic seroma. 7. Thyroid nodule. 8. Tiny pulmonary nodules. ALL DIAGNOSTIC STUDIES: 1. Chest/thorax CT angiogram showing no PE. Thyroid nodule, tiny pulmonary nodules. 2. Echocardiogram showing normal EF. 3. Extremity ultrasound showing suspected hematoma versus chronic seroma. HOSPITAL COURSE: A 72-year-old female admitted from Dr. Steiner's office after being found to have a systolic blood pressure of 210 with some neck and shoulder pain. CT angio was negative for dissection. She underwent a nuclear Lexiscan which was negative for ischemia. She had discontinued a lot of her antihypertensives as she had a hypotensive episode. She has been seen by Cardiology here. She has been reinstituted on antihypertensives including 5 mg of Norvasc, hydrochlorothiazide 12.5 mg, losartan 25 mg p.o. b.i.d. this in addition to her doxazosin, which she was previously on. Her olmesartan has been held. Her blood pressure still remained elevated, the last was 176/96. She is asymptomatic. I have offered to keep her here, however, she is quite anxious to be discharged. She has a followup with Dr. Steiner 5 days after discharge, which I think is appropriate. Can continue to titrate her antihypertensives as an outpatient. With regards to the mass on her left leg, she likely has a chronic seroma versus a hematoma. She was seen by Dr Castaneda who recommended following this with no intervention. FOLLOWUP: 1. Dr. Steiner 5 days after discharge. 2. Follow up for her thyroid nodule. I have discussed this with her. 3. Equivocal followup for her pulmonary nodules. BILLING: I spent more than 30 minutes on the day of discharge coordinating care. /[id number]/MODL MTDD
[2018-03-23] MEDS ORDERED: amLODIPine BESYLATE 5 MG TAB PO SCH (09:00)
== END 2018-03-22 17:43 | disposition home or self-care (01) | DRG 305 ==
LOC: F2W 16:00 → OBSVTOIN 19:32
PROVIDERS: ADMIT Internal Medicine; ATTEND Internal Medicine
DX: I16.0 Hypertensive urgency (principal); M54.2 Cervicalgia; M25.512 Pain in left shoulder; R22.42 Localized swelling, mass and lump, left lower limb; Z91.128 Patient's intentional underdosing of medication regimen for other reason; T46.5X5A Adverse effect of other antihypertensive drugs, initial encounter; E05.00 Thyrotoxicosis with diffuse goiter without thyrotoxic crisis or storm; J45.909 Unspecified asthma, uncomplicated; E78.5 Hyperlipidemia, unspecified; F32.9 Major depressive disorder, single episode, unspecified; Z96.641 Presence of right artificial hip joint; Z86.73 Personal history of transient ischemic attack (TIA), and cerebral infarction without residual deficits
CPT/HCPCS: 82435-PO; 82565-PO; 82947-PO; 84132-PO; 84295-PO; 84480-90; 84484-PO; 84520-PO; 85014-PO; 96374; A9500; J0360; J2785; Q9967